=== PATIENT | female | born 1950 | race African-American/Black ===

== ENCOUNTER 2018-12-12 10:33 | Emergency (ER) | payer MEDICARE, OTHER ==
[~2018-12-12] VITALS: Ht 167.6 cm; Wt 85.0 kg
[~2018-12-12 10:33] MED LIST: AMLO5TAB88 PO; BENA40TA9 PO; HYDR25TA PO
[2018-12-12] MEDS ORDERED: MORPHINE SULFATE 4 MG/ML CPJ (NOT FOR IM USE) IV ONE ×2 (11:15→17:30)
[2018-12-12] MEDS ORDERED: ONDANSETRON HCL 4MG/2ML INJ IV ONE ×2 (11:15→11:45)
[2018-12-12] MEDS ORDERED: SODIUM CHLORIDE 0.9% 1,000 ML IV ONE (11:41)
[2018-12-12] MEDS ORDERED: ETOMIDATE 2MG/ML 10ML VIAL IV ONE (11:45)
[2018-12-12 17:48] VITALS: BP 136/74
== END 2018-12-12 17:59 | disposition short-term general hospital (02) ==
LOC: ER 10:33
DX: S42.491A Other displaced fracture of lower end of right humerus, initial encounter for closed fracture (principal); S93.491A Sprain of other ligament of right ankle, initial encounter; W10.8XXA Fall (on) (from) other stairs and steps, initial encounter; Y93.89 Activity, other specified; Y92.89 Other specified places as the place of occurrence of the external cause; Y99.8 Other external cause status; I10 Essential (primary) hypertension; Z96.649 Presence of unspecified artificial hip joint; Z79.899 Other long term (current) drug therapy
CPT/HCPCS: 24600; 73080; 73610; 93005; 96374; 96375; 96376; 99152; 99285; J2270; J2405; J3490; J7030; L3670